=== PATIENT | male | born 1955 | race Caucasian/White ===

== ENCOUNTER 2021-07-19 07:02 | Emergency (ER) | payer OTHER ==
[2021-07-19 07:33] VITALS: BP 128/83; PULSE 78; TEMP 98; BMI 28.1
== END 2021-07-19 08:59 | disposition home or self-care (01) ==
LOC: JER 07:02
DX: S92.354A Nondisplaced fracture of fifth metatarsal bone, right foot, initial encounter for closed fracture (principal); W11.XXXA Fall on and from ladder, initial encounter
CPT/HCPCS: 73630-TC-RT-FY; 99283-25